=== PATIENT | female | born 1990 | race Caucasian/White ===

== ENCOUNTER 2022-09-24 10:05 | Emergency (ER) | payer OTHER ==
[~2022-09-24] VITALS: Ht 172.7 cm; Wt 72.6 kg
--- NOTE | 2022-09-24 10:25 | NUR ---
PT IS IN ROOM #2A. DR CLEMENTE EVALUATED THE PT.
[2022-09-24] MEDS ORDERED: GUAI-671 PO (10:30)
[2022-09-24] MEDS ORDERED: AZIT250T PO (10:30)
--- NOTE | 2022-09-24 10:40 | NUR ---
PT WAS D/C'd TO HOME. D/C INSTRUCTIONS GIVEN TO THE PT BY DR CLEMENTE.
[2022-09-24 10:41] VITALS: BP 129/81
== END 2022-09-24 10:42 | disposition home or self-care (01) ==
LOC: ER 10:05
DX: J20.9 Acute bronchitis, unspecified (principal); Z79.2 Long term (current) use of antibiotics; Z79.899 Other long term (current) drug therapy
CPT/HCPCS: A4663